=== PATIENT | female | born 1945 | race Hispanic/Latino ===

== ENCOUNTER 2020-02-20 12:13 | Emergency (ER) | payer MEDICARE ==
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
[2020-02-20 13:13] VITALS: BP 162/81
[2020-02-20 14:31] LABS: Hematocrit 36.2 % (30.3-42.9); Hemoglobin 11.9 gm/dl (10.1-14.3)
--- NOTE | 2020-02-20 14:38 | Cat Scan Report ---
CT HEAD WITHOUT CONTRAST INDICATION / CLINICAL INFORMATION: fall closed head injujry. TECHNIQUE: Axial imaging performed from the skull apex through the skull base without the use of cont rast. Sagittal and coronal reformatted images. All CT scans at this location are performed using CT dose reduction for ALARA by means of automated exposure control. COMPARISON: None available. FINDINGS: CEREBRAL PARENCHYMA: No significant abnormality. No acute territorial infarct. HEMORRHAGE: None. EXTRA-AXIAL SPACES: Normal in size and morphology for the patient's age. VENTRICULAR SYSTEM: Normal in size and morphology for the patient's age. MIDLINE SHIFT OR HERNIATION: None. CEREBELLUM / BRAINSTEM: No significant abnormality. CALVARIUM: No significant abnormality. ORBITS: Normal as visualized. PARANASAL SINUSES / MASTOID AIR CELLS: Normal as visualized. SOFT TISSUES of HEAD: Mild left frontal soft tissue swelling is noted. ADDITIONAL FINDINGS: None. IMPRESSION: No acute intracranial abnormality. Left frontal soft tissue swelling. Signer Name: Aravind Winter Jr, MD Signed: 02/20/2020 2:33 PM Workstation Name: [id number]
[2020-02-20 14:43] LABS: Blood Urea Nitrogen 9 mg/dL (7-17); Hemolysis Index 5
[2020-02-20 14:47] LABS: BUN/Creatinine Ratio 18
[2020-02-20] MEDS ORDERED: KETOROLAC 30 MG/1 ML INJ IM ONE (14:49)
[2020-02-20] MEDS ORDERED: ACETAMINOPHEN 325 MG TAB PO ONE (14:49)
== END 2020-02-20 19:34 | disposition home or self-care (01) ==
LOC: ED 12:13
DX: S09.90XA Unspecified injury of head, initial encounter (principal); M25.512 Pain in left shoulder; F10.10 Alcohol abuse, uncomplicated; I10 Essential (primary) hypertension; M19.91 Primary osteoarthritis, unspecified site; Z98.890 Other specified postprocedural states; Z79.899 Other long term (current) drug therapy; X58.XXXA Exposure to other specified factors, initial encounter; Y93.89 Activity, other specified; Y92.89 Other specified places as the place of occurrence of the external cause; Y99.8 Other external cause status
CPT/HCPCS: 36415; 70450; 80048; 82550; 83735; 85014; 85018; 85049; 96372; 99284; J1885; 80320; G0480